=== PATIENT | female | born 1985 | race Caucasian/White ===

== ENCOUNTER → 2018-01-18 | Outpatient (CLI) | payer MEDICAID ==
--- NOTE | 2018-01-18 15:20 | RADIOLOGY REPORT (SQ) ---
EXAM DESCRIPTION: KNEE RIGHT 4 VIEWS COMPLETED DATE/TIME: 01/18/2018 1:58 pm REASON FOR STUDY: PAIN AND SWELLING OF RT KNEE M25.561 PAIN IN RIGHT KNEE COMPARISON: None. NUMBER OF VIEWS: Four views. TECHNIQUE: AP, lateral, and both oblique radiographic images acquired of the right knee. LIMITATIONS: None. FINDINGS: MINERALIZATION: Normal. BONES: No acute fracture or dislocation. No worrisome bone lesions. Surgical changes from previous AC L surgery. JOINT: No effusion. No chondrocalcinosis. OTHER: No other significant finding. IMPRESSION: SURGICAL CHANGES. NO APPARENT ACUTE FINDINGS. TECHNICAL DOCUMENTATION: JOB ID: [id number] [employer]- All Rights Reserved Reading location - IP/workstation name: [email or web address]
== END ==
LOC: OD 13:42
PROVIDERS: ATTEND Nurse Practitioner Acute Care
DX: M25.561 Pain in right knee (principal)